=== PATIENT | male | born 1945 | race Caucasian/White ===

== ENCOUNTER 2019-08-19 20:01 | Emergency (ER) | payer MEDICARE ==
--- NOTE | 2019-08-19 20:27 | ED ---
Throat Pain/Nasal Congestion - HPI Summary HPI Summary: This patient is a 74 year old male presenting to [facility] with a chief complaint of problems s/p oral surgery. The patient had 2 screws from the mandible put in one month ago designed to close his jaw which came loose while he was yawning while driving. He states he was unable to cut the wires connecting the screws and he says they were going to be taken out in three days regardless. He states he attempted to use wire cutters but it did not work. He came here to get the screws cut out. - History of Current Complaint Chief Complaint: EDGeneral Time Seen by Provider: 08/19/19 20:19 Hx Obtained From: Patient Onset/Duration: Lasting Minutes - Allergies/Home Medications Allergies/Adverse Reactions: Allergies Allergy/AdvReac Type Severity Reaction Status Date / Time sildenafil [From Viagra] Allergy HEART Verified 08/24/19 15:57 RACING procaine [From Novocain] AdvReac Intermediate Headache Verified 08/24/19 22:09 PMH/Surg Hx/FS Hx/Imm Hx Endocrine/Hematology History: Reports: Hx Diabetes - diet controlled Cardiovascular History: Reports: Hx Hypertension Denies: Hx Pacemaker/ICD History: Denies: Hx Dialysis, Hx Renal Disease Musculoskeletal History: Denies: Hx Scoliosis Sensory History: Reports: Hx Hearing Aid Neurological History: Denies: Hx Headaches, Other Neuro Impairments/Disorders Psychiatric History: Denies: Hx Panic Disorder - Surgical History Surgery Procedure, Year, and Place: JAW - - A MONTH AGO - WIRED/SCREWS SHUT DUE TO A FALL - FRACTURED Infectious Disease History: No Infectious Disease History: Denies: Traveled Outside the [place] in Last 30 Days - Family History Known Family History: Negative: Diabetes - Social History Alcohol Use: Occasionally Substance Use Type: Reports: None Smoking Status (MU): Never Smoked Tobacco Review of Systems Negative: Fever Positive: Other - Loose surgical screws All Other Systems Reviewed And Are Negative: Yes Physical Exam - Summary Physical Exam Summary: Appearance: Well-appearing, Well-nourished, lying in bed comfortably Skin: Warm, dry, no obvious rash Eyes: sclera anicteric, no conjunctival pallor ENT: mucous membranes moist, surgical screws in the mandible on either side with attached wire and screw from the upper jaw. Neck: Supple, nontender Respiratory: Clear to auscultation, no signs of respiratory distress Cardiovascular: Normal S1, S2. No murmurs. Normal distal pulses in tibial and radial bilaterally. Abdomen: Soft, nontender, normal active bowel sounds present Musculoskeletal: Normal, Strength/ROM Intact Neurological: A&Ox3, awake and alert, mentation is normal, speech is fluent and appropriate Psychiatric: affect is normal, does not appear anxious or depressed Triage Information Reviewed: Yes Vital Signs On Initial Exam: Initial Vitals Temp Pulse Resp BP Pulse Ox 98.3 F 74 16 174/100 97 08/19/19 20:10 08/19/19 20:10 08/19/19 20:10 08/19/19 20:10 08/19/19 20:10 Vital Signs Reviewed: Yes Procedures - Procedure Summary Procedure Summary: Wire Cutting: Wires were snipped with a surgical sales representative wire rope and the wires were then removed without incident. - Sedation Patient Received Moderate/Deep Sedation with Procedure: No Diagnostics - Vital Signs Vital Signs Temp Pulse Resp BP Pulse Ox 08/19/19 20:10 98.3 F 74 16 174/100 97 - Laboratory Lab Statement: Any lab studies that have been ordered have been reviewed, and results considered in the medical decision making process. - Radiology Soft Tissue Neck XR Radiology Interpretation Completed By: ED Physician Summary of Radiographic Findings: No metallic foreign body seen. ED Provider has reviewed this report. EENT Course/Dx - Course Course Of Treatment: This patient is a 74 year old male presenting to [facility] with a chief complaint of problems s/p oral surgery. The patient had 2 screws put in one month ago designed to close his jaw which came loose while he was yawning while driving. In the ED, wires were snipped with a surgical sales representative wire rope and the wires were then removed without incident. A plan for discharge was discussed with the patient and he was agreeable with this plan. - Diagnoses Provider Diagnoses: History of surgical procedure on mouth Discharge ED - Sign-Out/Discharge Documenting (check all that apply): Patient Departure - Discharge Patient Received Moderate/Deep Sedation with Procedure: No - Discharge Plan Condition: Improved Disposition: HOME Referrals: Caitlin Kowalski MD [Primary Care Provider] - Additional Instructions: Keep your followup appt on Thursday. We got the wires out tonight so at least they will not be in your way. - Billing Disposition and Condition Condition: IMPROVED Disposition: Home - Attestation Statements Document Initiated by Scribe: Yes Documenting Scribe: Ernst Hall Provider For Whom Chetna is Documenting (Include Credential): Rodríguez Carey MD Scribe Attestation: I, Ernst Hall, scribed for Rodríguez Carey MD on 08/25/19 at 1848. Scribe Documentation Reviewed: Yes Provider Attestation: The documentation as recorded by the dorotaeErnst accurately reflects the service I personally performed and the decisions made by me, Rodríguez Carey MD Status of Scribe Document: Viewed
[2019-08-19 21:07] VITALS: BP 170/104
--- OUTSIDE RECORDS SUMMARY | 2019-08-19 21:09 | XMS REPORT | Continuity of Care Document ---
:1945 External Reference #:[id number] Author Name Nikhil Atkins M.D. 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 Onset: Nonproliferative diabetic retinopathy Nikhil Atkins M.D. Onset: 07/09/2015 Nuclear senile cataract Nikhil Atkins M.D. Onset: 07/09/2015 Combined form of senile cataract Nikhil Atkins M.D. Onset: 07/17/2016 Type 2 diabetes mellitus with mild Nikhil Atkins M.D. Onset: 12/08/2017 nonproliferative diabetic retinopathy without macular edema, bilateral Social History Type Date Description Comments Sex Unknown ETOH Use Drinks 2 Alcoholic Beverages Per Day Tobacco Use Start: Unknown Patient has never smoked Recreational Drug Use Denies Drug Use Smoking Status Reviewed: 08/04/19 Patient has never smoked Allergies, Adverse Reactions, Alerts Active Allergies Reaction Severity Comments Date Novocain headache for 4 hrs. 07/09/2015 Medications Active Medications SIG Qnty Indications Ordering Provider Date Zolpidem Tartrate Unknown 10mg Tablets Co Q10 Unknown 60mg Capsules Vitamin B12 Unknown 1000mcg Tablets ER Lisinopril Unknown 10mg Tablets Lovaza Unknown 5mg Capsules Vitamin D3 Maximum 1 daily Unknown Strength 5000Unit Capsules Melatonin ER 1 tab po at hs Unknown Tablets ER Turmeric Unknown 500mg Capsules Milk Thistle Unknown 500mg Capsules Lovastatin Sirisha Meyersela 20mg Tablets RPA-C Immunizations Description No Information Available Vital Signs Description No Information Available Results Description No Information Available Procedures Description No Information Available Medical Devices Description No Information Available Encounters Description No Information Available Assessments Date Code Description Provider 08/04/2019 H25.813 Combined forms of age-related cataract, Nikhil Atkins M.D. bilateral 08/04/2019 E11.3293 Type 2 diabetes mellitus with mild Nikhil Atkins M.D. nonproliferative diabetic Plan of Treatment 08/04/2019 - Nikhil Atkins M.D.H25.813 Combined forms of age-related cataract , bilateralComments:Smoking can increase the risk of developing or worsening any eye related disease, as well as affect your overall health. If you are a smoker, we strongly recommend that you quit.If you are not a smoker, we strongly recommend that you do not start. You have been diagnosed with cataracts. If you are happy with your vision as it is now, then we will see you at your next scheduled appointment. If you feel like your vision is getting worse before your scheduled appointment, please call [facility] at .Follow up:6 Month Follow Up You can expect to have your eyes dilated at your next visit. If Dr. Atkins orders any additional testing, it may require extra time. We recommend that you bring sunglasses, as dilation drops often make you light sensitive until they wear off. We always recommend you bring someone to drive you home if you are uncomfortable driving with your eyes dilated. If you have any questions before your next visit, feel free to call our office at .E11.1714 Type 2 diabetes mellitus with mild nonproliferative diabeticComments:I can detect diabetic changes in your eyes. Proper control of your diabetes is important for the health of your eyes. It is important that you keep all of your follow up appointments. Dr. Atkins has sent a report to your primary care doctor, letting them know the current status of your retina. Functional Status Description No Information Available Mental Status Description No Information Available Referrals Description No Information Available
--- OUTSIDE RECORDS SUMMARY | 2019-08-19 21:09 | XMS REPORT | Summary of Care ---
:1945 Author Organization [facility] Address [address] [address] Care Team Providers Name Role Phone None, Letona Primary Care Provider Unavailable Reason for Visit Reason Comments Fall Encounter Details Date Type Department Care Team Description 07/11/2019 - Emergency [facility] Emergency Department Sharifa Marino DO [address] [address] [phone] Emergency 07/12/2019 1 Brian Reveles MD [address] [address] [phone] [place] [id number] Allergies Active Allergy Reactions Severity Noted Date Comments Novocain Other High 07/11/2019 Severe Headache documented as of this encounter (statuses as of 07/13/2019) Medications Medication Sig Dispensed Refills Start Date End Date Status lisinopril (PRINIVIL, Take 10 mg by 0 Active ZESTRIL) 10 MG Oral mouth DAILY. Tab LOVASTATIN PO Take by mouth. 0 Active diclofenac (VOLTAREN) Take 1 Tab by 20 Tab 0 07/12/2019 Active 75 MG Oral Tab EC mouth TWO TIMES DAILY NEEDED (as needed for pain). documented as of this encounter (statuses as of 07/13/2019) Active Problems Not on filedocumented as of this encounter (statuses as of 07/13/2019) Immunizations Name Administration Dates Next Due TETANUS & DIPHTHERIA TOXOID (OVER 7 YRS) 07/12/2019 documented as of this encounter Social History Tobacco Use Types Packs/Day Years Used Date Never Assessed Sex Assigned at Date Recorded Not on file Job Start Date Occupation Industry Not on file Not on file Not on file Travel History Travel Start Travel End No recent travel history available. documented as of this encounter Last Filed Vital Signs Vital Sign Reading Time Taken Comments Blood Pressure 151/78 07/12/2019 4:45 AM EDT Pulse 79 07/12/2019 4:45 AM EDT Temperature - - Respiratory Rate 17 07/12/2019 4:45 AM EDT Oxygen Saturation 94% 07/12/2019 4:45 AM EDT Inhaled Oxygen Concentration - - Weight - - Height - - Body Mass Index - - documented in this encounter Discharge Instructions Brad Avila MD - 07/12/2019Follow up with [facility] in [facility] [phone] Call this morning for an appt. esvin AttachmentsThe following attachments cannot be sent through Care Everywhere.Jaw Fracture Discharge Instructions ([place])Preventing Falls ([place])HEAD INJURY ( AFTERCARE(R) INSTRUCTIONS(ER/ED)) ([place])documented in this encounter Plan of Treatment Name Type Priority Associated Diagnoses Date/Time Lac Repair Procedures Routine 07/12/2019 2:04 AM EDT Health Maintenance Due Date Last Done Comments DEPRESSION SCREENING 1959 HIV SCREENING 1962 HEPATITIS C SCREENING 1987 COLONOSCOPY SCREENING 1997 ZOSTER IMMUNIZATION SERIES (1 of 2) 1997 FALL RISK ASSESSMENT 2012 PNEUMOCOCCAL 65+YRS (1 of 2 - 2012 PCV13) INFLUENZA VACCINE (#1) 2019 HPV IMMUNIZATION SERIES Aged Out No longer eligible based on patient's age to complete this topic MENINGOCOCCAL VACCINE IMM Aged Out No longer eligible based on patient's age to complete this topic documented as of this encounter Procedures Procedure Name Priority Date/Time Associated Comments Diagnosis XR KNEE 3 VIEWS RIGHT STAT 07/12/2019 3:12 Results for this AM EDT procedure are in the results section. XR PELVIS 1 OR 2 VIEWS STAT 07/12/2019 3:11 Results for this (STANDARD) AM EDT procedure are in the results section. XR SHOULDER MIN 2 STAT 07/12/2019 3:10 Results for this VIEWS RIGHT (STANDARD) AM EDT procedure are in the results section. XR CHEST 2 VIEW PA AND STAT 07/12/2019 3:10 Results for this LATERAL (STANDARD) AM EDT procedure are in the results section. URINE DRUG SCREEN STAT 07/12/2019 3:10 Results for this AM EDT procedure are in the results section. LACERATION REPAIR Routine 07/12/2019 2:[address] SPINE CERVICAL STAT 07/12/2019 1:34 Results for this AM EDT procedure are in the results section. CT FACE WITHOUT IV STAT 07/12/2019 1:31 Results for this CONTRAST AM EDT procedure are in the results section. CT HEAD WITHOUT IV STAT 07/12/2019 1:28 Results for this CONTRAST AM EDT procedure are in the results section. CBC WITH DIFFERENTIAL STAT 07/12/2019 12:55 Results for this AM EDT procedure are in the results section. TYPE AND SCREEN STAT 07/12/2019 12:55 Results for this AM EDT procedure are in the results section. COMPREHENSIVE STAT 07/12/2019 12:55 Results for this METABOLIC PANEL AM EDT procedure are in the results section. ALCOHOL LEVEL, MEDICAL STAT 07/12/2019 12:55 Results for this AM EDT procedure are in the results section. PROTHROMBIN TIME STAT 07/12/2019 12:55 Results for this AM EDT procedure are in the results section. documented in this encounter Results XR KNEE 3 VIEWS RIGHT (07/12/2019 3:12 AM EDT) Specimen Impressions Performed At 1. No fracture or dislocation. Signed by Carlos Figueroa on 07/12/2019 3:22 AM Narrative Performed At Procedure: XR KNEE 3 VIEWS RIGHT Date of service: 07/12/2019 2:42 AM History: 74 years, Male, "fall" Technique: 3 views of right knee Comparison: None. Findings: There is no fracture or dislocation. The medial and lateral compartments are well-maintained. 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 No joint effusion is identified. There are vascular calcifications. Procedure Note Interface, Rad Results - 07/12/2019 3:24 AM EDT Procedure: XR KNEE 3 VIEWS RIGHT Date of service: 07/12/2019 2:42 AM History: 74 years, Male, "fall" Technique: 3 views of right knee Comparison: None. Findings: There is no fracture or dislocation. The medial and lateral compartments are well-maintained. 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 No joint effusion is identified. There are vascular calcifications. IMPRESSION 1. No fracture or dislocation. Signed by Carlos Figueroa on 07/12/2019 3:22 AM XR PELVIS 1 OR 2 VIEWS (STANDARD) (07/12/2019 3:11 AM EDT) Specimen Impressions Performed At 1. No fracture or dislocation. Signed by Carlos Figueroa on 07/12/2019 3:24 AM Narrative Performed At Procedure: XR PELVIS 1 OR 2 VIEWS (STANDARD) Date of service: 07/12/2019 2:42 AM History: 74 years, Male, "fall" Technique: 1 AP view of pelvis Comparison: None. Findings: There is no fracture or dislocation. The sacroiliac joints, hip joints and pelvic symphysis are preserved. There are vascular calcifications. Procedure Note Interface, Rad Results - 07/12/2019 3:26 AM EDT Procedure: XR PELVIS 1 OR 2 VIEWS (STANDARD) Date of service: 07/12/2019 2:42 AM History: 74 years, Male, "fall" Technique: 1 AP view of pelvis Comparison: None. Findings: There is no fracture or dislocation. The sacroiliac joints, hip joints and pelvic symphysis are preserved. There are vascular calcifications. IMPRESSION 1. No fracture or dislocation. Signed by Carlos Figueroa on 07/12/2019 3:24 AM XR SHOULDER MIN 2 VIEWS RIGHT (STANDARD) (07/12/2019 3:10 AM EDT) Specimen Impressions Performed At 1. No fracture or dislocation. Signed by Carlos Figueroa on 07/12/2019 3:14 AM Narrative Performed At Procedure: XR SHOULDER MIN 2 VIEWS RIGHT (STANDARD) Date of service: 07/12/2019 2:42 AM History: 74 years, Male, "fall" Technique: 3 views of right shoulder Comparison: None. Findings: There is no fracture or dislocation. 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 Soft tissues are intact. Procedure Note Interface, Rad Results - 07/12/2019 3:17 AM EDT Procedure: XR SHOULDER MIN 2 VIEWS RIGHT (STANDARD) Date of service: 07/12/2019 2:42 AM History: 74 years, Male, "fall" Technique: 3 views of right shoulder Comparison: None. Findings: There is no fracture or dislocation. 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 Soft tissues are intact. IMPRESSION 1. No fracture or dislocation. Signed by Carlos Figueroa on 07/12/2019 3:14 AM XR CHEST 2 VIEW PA AND LATERAL (STANDARD) (07/12/2019 3:10 AM EDT) Specimen Impressions Performed At 1. No active disease in the chest. Signed by Carlos Figueroa on 07/12/2019 3:16 AM Narrative Performed At Procedure: XR CHEST 2 VIEW PA AND LATERAL (STANDARD) Date of service: 07/12/2019 2:37 AM History: 74 years, Male, "fall" Comparison: None Findings: The heart size is normal. The aorta is atherosclerotic. There is no consolidation, pleural effusion or pneumothorax. The bones are grossly intact. Procedure Note Interface, Rad Results - 07/12/2019 3:18 AM EDT Procedure: XR CHEST 2 VIEW PA AND LATERAL (STANDARD) Date of service: 07/12/2019 2:37 AM History: 74 years, Male, "fall" Comparison: None Findings: The heart size is normal. The aorta is atherosclerotic. There is no consolidation, pleural effusion or pneumothorax. The bones are grossly intact. IMPRESSION 1. No active disease in the chest. Signed by Carlos Figueroa on 07/12/2019 3:16 AM URINE DRUG SCREEN (07/12/2019 3:10 AM EDT) Amphetamines Negative Negative [facility] Barbiturates Negative Negative [facility] Benzodiazepine Negative Negative [facility] Cannabinoids Negative Negative [facility] Cocaine Negative Negative [facility] Methadone Negative Negative [facility] Opiates Negative Negative [facility] Oxycodone Negative Negative [facility] Phencyclidine Negative Negative [facility] Propoxyphene Negative Negative [facility] Specimen Urine Narrative Performed At Drug Name [facility] Cut-off Level Amphetamine (AMP/METH) 1000 ng/ml Barbiturates (XOCHILT) 200 ng/ml Benzodiazepines (MARIA) 200 ng/ml Cannabinoids (THC) 50 ng/ml Cocaine (CORRINA) 300 ng/ml Methadone (MTD) 300 ng/ml Opiates (OPI) 300 ng/ml Oxycodone (OXY) 100 ng/ml Phencyclidine (PCP) 25 ng/ml Propoxyphene (PPX) 300 ng/ml Test results from this drug screen are to be used for medical purposes only. If positive, the sample is presumed to contain detectable drug concentrations equal to or greater than the cut-off concentrations listed above. A positive result indicates the presence of the drug or drug metabolite and does not indicate the level of intoxication or urinary concentration. Confirmation is available upon request to [facility]. Request for confirmation must be made within 5 days of the drug screen result. Performing Organization Address City/State/Zipcode Phone Number [facility] [address] [place] [address] CT SPINE CERVICAL (07/12/2019 1:34 AM EDT) Specimen Impressions Performed At 1. No fracture or malalignment. Signed by Carlos Figueroa on 07/12/2019 1:45 AM Narrative Performed At Procedure: CT SPINE CERVICAL Date of service: 07/12/2019 1:18 AM History: 74 years, Male, "C-spine trauma, NEXUS/CCR negative, low risk" Technique: Axial CT images of the cervical spine were obtained without intravenous contrast. Sagittal and coronal reformats were performed. Comparison: None Findings: Vertebral body stature is maintained. No fracture is identified. There is no spondylolisthesis. The craniocervical junction and facet joints are normally aligned. There is moderate multilevel disc space narrowing and endplate spurring, consistent with degenerative disc disease. There is moderate multilevel uncovertebral and facet arthropathy. There are varying degrees of spinal canal and neural foraminal narrowing at the disc space levels. There is no prevertebral soft tissue swelling. The lung apices are clear. Procedure Note Interface, Rad Results - 07/12/2019 1:47 AM EDT Procedure: CT SPINE CERVICAL Date of service: 07/12/2019 1:18 AM History: 74 years, Male, "C-spine trauma, NEXUS/CCR negative, low risk" Technique: Axial CT images of the cervical spine were obtained without intravenous contrast. Sagittal and coronal reformats were performed. Comparison: None Findings: Vertebral body stature is maintained. No fracture is identified. There is no spondylolisthesis. The craniocervical junction and facet joints are normally aligned. There is moderate multilevel disc space narrowing and endplate spurring, consistent with degenerative disc disease. There is moderate multilevel uncovertebral and facet arthropathy. There are varying degrees of spinal canal and neural foraminal narrowing at the disc space levels. There is no prevertebral soft tissue swelling. The lung apices are clear. IMPRESSION 1. No fracture or malalignment. Signed by Carlos Figueroa on 07/12/2019 1:[address] FACE WITHOUT IV CONTRAST (07/12/2019 1:31 AM EDT) Specimen Impressions Performed At 1. Oblique fracture at the left mandibular neck. Anterior dislocation of the left mandibular head. Signed by Carlos Figueroa on 07/12/2019 1:52 AM Narrative Performed At Procedure: CT FACE WITHOUT IV CONTRAST Date of service: 07/12/2019 1:18 AM History: 74 years, Male, "Facial trauma, fx suspected" Technique: Axial CT images of the face without contrast. Sagittal and coronal reformats were performed. Comparison: None Findings: There is mild mucosal thickening in the maxillary sinuses. The rest of the paranasal sinuses are clear. The mastoid air cells are clear. The globes are intact. The extraocular muscles, optic nerves and retrobulbar fat are normal. There is an oblique fracture at the left mandibular neck. There is anterior dislocation of the left mandibular head. There is soft tissue swelling over the left temporomandibular joint. Procedure Note Interface, Rad Results - 07/12/2019 1:54 AM EDT Procedure: CT FACE WITHOUT IV CONTRAST Date of service: 07/12/2019 1:18 AM History: 74 years, Male, "Facial trauma, fx suspected" Technique: Axial CT images of the face without contrast. Sagittal and coronal reformats were performed. Comparison: None Findings: There is mild mucosal thickening in the maxillary sinuses. The rest of the paranasal sinuses are clear. The mastoid air cells are clear. The globes are intact. The extraocular muscles, optic nerves and retrobulbar fat are normal. There is an oblique fracture at the left mandibular neck. There is anterior dislocation of the left mandibular head. There is soft tissue swelling over the left temporomandibular joint. IMPRESSION 1. Oblique fracture at the left mandibular neck. Anterior dislocation of the left mandibular head. Signed by Carlos Figueroa on 07/12/2019 1:[address] HEAD WITHOUT IV CONTRAST (07/12/2019 1:28 AM EDT) Specimen Impressions Performed At 1. No intracranial hemorrhage or depressed skull fracture. Signed by Carlos Figueroa on 07/12/2019 1:41 AM Narrative Performed At Procedure: CT HEAD WITHOUT IV CONTRAST Date of service: 07/12/2019 1:17 AM History: 74 years, Male, "Head trauma, minor, GCS>=13, NOC/NEXUS/CCR neg, first study" Technique: Axial head CT without contrast, with sagittal and coronal reformatted images. Comparison: None Findings: The ventricles, sulci and cisterns are age-appropriate. The brain parenchyma is normal. The wolfe-white matter differentiation is preserved without evidence of acute territorial infarction. There is no intracranial hemorrhage, extra-axial fluid collection, mass effect or midline shift. There is mild mucosal thickening in the maxillary sinuses. The mastoid air cells are clear. The visualized orbits are normal. There is no depressed skull fracture. There are atherosclerotic calcifications in the cavernous segments of the internal carotid arteries. Procedure Note Interface, Rad Results - 07/12/2019 1:43 AM EDT Procedure: CT HEAD WITHOUT IV CONTRAST Date of service: 07/12/2019 1:17 AM History: 74 years, Male, "Head trauma, minor, GCS>=13, NOC/NEXUS/CCR neg, first study" Technique: Axial head CT without contrast, with sagittal and coronal reformatted images. Comparison: None Findings: The ventricles, sulci and cisterns are age-appropriate. The brain parenchyma is normal. The wolfe-white matter differentiation is preserved without evidence of acute territorial infarction. There is no intracranial hemorrhage, extra-axial fluid collection, mass effect or midline shift. There is mild mucosal thickening in the maxillary sinuses. The mastoid air cells are clear. The visualized orbits are normal. There is no depressed skull fracture. There are atherosclerotic calcifications in the cavernous segments of the internal carotid arteries. IMPRESSION 1. No intracranial hemorrhage or depressed skull fracture. Signed by Carlos Figueroa on 07/12/2019 1:41 AM PROTHROMBIN TIME (07/12/2019 12:55 AM EDT) INR 1.06 0.79 - 1.15 [facility] Comment: [facility] INR Therapeutic Range: 2.0 - 3.5 Protime 13.5 11.4 - 14.3 sec [facility] Specimen Blood Performing Organization Address City/State/Zipcode Phone Number [facility] [address] [place] [address] [phone] TYPE AND SCREEN (07/12/2019 12:55 AM EDT) ABO/RH Type O NEG [facility] Antibody Screen Interp NEG [facility] Specimen Blood Performing Organization Address City/State/Zipcode Phone Number [facility] [address] [place] [address] COMPREHENSIVE METABOLIC PANEL (07/12/2019 12:55 AM EDT) Sodium 139 134 - 145 mmol/L [facility] Potassium 3.8 3.5 - 5.1 mmol/L [facility] Chloride 101 98 - 107 mmol/L [facility] CO2 22 22 - 30 mmol/L [facility] Calcium 8.9 8.3 - 10.1 mg/dl [facility] Albumin 4.3 3.5 - 5.0 g/dl [facility] BUN 14 9 - 20 mg/dl [facility] Creatinine 0.9 0.8 - 1.5 mg/dl [facility] Glucose 296 (H) 70 - 99 mg/dl [facility] Total Protein 7.5 6.3 - 8.2 g/dl [facility] Total Bilirubin 0.5 0.0 - 1.1 MG/DL [facility] AST 23 17 - 59 U/L [facility] ALT 17 (L) 21 - 72 U/L [facility] Alkaline 63 40 - 150 U/L [facility] eGFR >60 See Interpretation [facility] Comment: Below ml/min/1.73ml [facility] Estimated GFR Interpretation: Above 60ml/min/1.73m2 = Normal Renal Function 30-59 ml/min/1.73m2 = Stage 3 Chronic Kidney Disease 15-29 ml/min/1.73m2 = Stage 4 Chronic Kidney Disease Less than 15 ml/min/1.73m2 = Stage 5 Chronic Kidney Disease The GFR value is calculated using the Modification of Diet in Renal Disease ( MDRD) Study Equation which can be found at: https://www.kidney.org/content/vafl-cjxmp-kjtxqppb BUN/Creatinine 16 6 - 22 RATIO [facility] Anion Gap 16 (H) 3 - 11 mmol/L [facility] A/G Ratio 1.3 0.8 - 2.0 ratio [facility] Specimen Blood Performing Organization Address City/State/Zipcode Phone Number [facility] [address] [facility] [place] [address] [phone] CBC WITH DIFFERENTIAL (07/12/2019 12:55 AM EDT) WBC Count 5.82 4.23 - 9.07 K/uL [facility] RBC Count 4.42 4.30 - 5.89 M/UL [facility] Hemoglobin 13.3 (L) 13.7 - 17.5 g/dL [facility] Hematocrit 37.5 (L) 40.1 - 51.0 % [facility] MCV 84.8 79.0 - 92.2 FL [facility] MCH 30.1 25.7 - 32.2 PG [facility] MCHC 35.5 32.3 - 36.5 g/dL [facility] Platelet Count 105 (L) 163 - 337 K/uL [facility] MPV 10.6 9.4 - 12.4 FL [facility] RDW 13.9 11.6 - 14.4 % [facility] Neutrophil % 76.5 (H) 34.0 - 67.9 % [facility] Lymphocyte % 15.6 (L) 21.8 - 53.1 % [facility] Monocyte % 5.2 (L) 5.3 - 12.2 % [facility] Eosinophil % 2.1 0.8 - 7.0 % [facility] Basophil % 0.3 0.2 - 1.2 % [facility] nRBC % 0.0 0.0 - 0.2 % [facility] Neutrophil # 4.45 1.78 - 5.38 K/UL [facility] Lymphocyte # 0.91 (L) 1.32 - 3.57 K/UL [facility] Monocyte # 0.30 0.30 - 0.82 K/UL [facility] Eosinophil # 0.12 0.04 - 0.54 K/UL [facility] Basophil # 0.02 0.01 - 0.08 K/UL [facility] Immature Gran % 0.3 0.0 - 0.4 % [facility] Immature Gran # 0.02 0.00 - 0.03 K/uL [facility] NRBC # 0.00 0.00 - 0.12 K/uL [facility] Specimen Blood Performing Organization Address [facility] Phone Number [facility] [address] [place] [address] ALCOHOL LEVEL, MEDICAL (07/12/2019 12:55 AM EDT) Blood Alcohol 120.50 (H) 0.00 - 10.00 MG/DL [facility] Alcohol % 0.12 None Detected % [facility] Specimen Blood Performing Organization Address [facility] Phone Number [facility] [address] [place] [address] documented in this encounter Visit Diagnoses Diagnosis Fall at home, initial encounter - Primary Minor head injury, initial encounter Fracture of alveolus of left mandible, initial encounter for closed fracture ( HCC) documented in this encounter Administered Medications Medication Order MAR Action Action Date Dose Rate Site bacitracin-polymyxin b Given 07/12/2019 3:12 AM EDT Other (POLYSPORIN) topical ointment Topical, NOW, 1 dose, Thu07/12/19 at 0040 ketorolac (TORADOL) injection 30 mg Given 07/12/2019 4:18 AM EDT 30 mg 30 mg, Intravenous Push, NOW, 1 dose, Thu07/12/19 at 0405 tetanus-diphtheria toxoids-Td Given 07/12/2019 3:10 AM 0.5 mL Arm - Upper Left (TENIVAC) injection (adult) 0.5 EDT mL 0.5 mL, Intramuscular, NOW, 1 dose, Thu07/11/19 at 2350 documented in this encounter Insurance Payer Benefit Plan / Subscriber ID Effective Dates Phone Address Type Group [employer] EXCELL xxxxxxxxxxxx 2016-Present [employer] MEDICARE BLUE PPO [phone]) documented as of this encounter
--- OUTSIDE RECORDS SUMMARY | 2019-08-19 21:09 | XMS REPORT | Continuity of Care Document ---
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 [phone] Problems Active Problems Provider Date Type 2 diabetes mellitus Pedro Coreas M.D.,FACP Onset: 03/01/2009 Right bundle branch block and left Pedro Coreas M.D.,FACP Onset: 2018 anterior fascicular block on electrocardiogram Benign essential hypertension Pedro Coreas M.D.,FACP Onset: 03/01/2009 Mixed hyperlipidemia Pedro Coreas M.D.,FACP Onset: 03/01/2009 Gout Pedro Coreas M.D.,FACP Onset: 03/21/2011 Impotence of organic origin Pedro Coreas M.D.,FACP Onset: 03/24/2013 Insomnia Pedro Coreas M.D.,FACP Onset: 04/20/2013 Congenital anomaly of the kidney Pedro Coreas M.D.,FACP Onset: 2014 Note: RIGHT Social History Type Date Description Comments Sex Unknown Tobacco Use Start: Unknown Never Smoked Cigarettes ETOH Use 10/12/2018 Denies alcohol use Recreational Drug Use Denies Drug Use Tobacco Use Start: Unknown Patient has never smoked Smoking Status Reviewed: 07/18/19 Patient has never smoked Allergies, Adverse Reactions, Alerts Active Allergies Reaction Severity Comments Date Viagra hypotension at higher dose 06/04/2016 Novacaine 07/18/2019 Inactive Allergies NKDA 03/01/2009 Medications Active Medications SIG Qnty Indications Ordering Date Provider Metformin HCL 1 tablets every 60tabs E11.9 Caitlin Kowalski MD 07/18/2019 500mg morning and 1 Tablets tablet by mouth at bedtime Zolpidem Tartrate 1/2-1 by mouth 30tabs F51.01 Caitlin Kowalski MD 05/30/2019 every night at 10mg Tablets bedtime as needed insomnia mdd 1 Metformin HCL ER take 1 tablet 60tabs E11.65 Zainab Franks MD 04/27/2019 daily. 750mg Tablets ER 24HR Lovastatin take 1 tablet at 90tabs Miguelina 02/16/2018 20mg bedtime Alessandra Castorena Tablets Sildenafil Citrate 1/2 tabs one hour 14tabs N52.9 Pedro Lewis 01/27/2018 prior to Alessandra Coreas,FACP 50mg Tablets intercourse Melatonin 1 by mouth every 90caps Pedro Lewis 04/03/2017 5mg night Alessandra Coreas,FACP Capsules Lisinopril 1 by mouth every 90tabs Pedro Lewis 10/03/2016 5mg day Alessandra Coreas,FACP Tablets Indomethacin take 1 capsule by 20caps M10.071 Pedro Lewis 10/03/2015 50mg mouth two times Alessandra Coreas,FACP Capsules daily for 2 days, then take 1 capsule by mouth every day as needed Lovaza take 1 capsule by 180caps E78.2 Caitlin Kowalski MD 09/16/2012 1gm Capsules mouth twice a day Aspirin 1 po qd Pedro Lewis 03/21/2011 81mg Alessandra Coreas,FACP Chewtabs Freestyle Lite Test Use as Directed 100units E11.65 Pedro Lewis 2008 Every Day Or as Alessandra Coreas,ANA Strip Directed Freestyle Lite Use as directed 100units E11.65 Pedro Lewis Lancets Alessandra Coreas,FACP Coq-10 1 by mouth every 30caps Pedro Lewis 200mg day Alessandra Coreas,FACP Capsules Vitamin B12 1 po qd Unknown Tablets D3 Maximum Strength Unknown 5000Unit Capsules Milk Thistle 2 by mouth every Unknown 200mg day Capsules Immunizations CPT Code Status Date Vaccine Lot # [id number] Given 10/06/2017 Pneumonia Vaccine [id number] Given 10/03/2015 Pneumococcal Conjugate Vaccine 13 Valent For [id number] Intramuscular Use 47583 Given 03/21/2011 Pneumonia Vaccine [id number] 76795 Given 11/23/2010 Tetanus And Diptheria (Td) For Adult Use Preservative Free [id number] Refused 12/19/2013 Flu Vaccine Split Virus Preservative Free For Indiv 3Yr Older 92222 Refused 09/16/2012 Influenza Virus 3Yrs & Over 48075 Refused 03/22/2012 Influenza Virus 3Yrs & Over 08745 Refused 09/25/2011 Influenza Virus 3Yrs & Over 85409 Refused 03/21/2011 Influenza Virus 3Yrs & Over Vital Signs Date Vital Result Comment 07/18/2019 2:38pm Height 69 inches 5'9" Weight 189.00 lb Heart Rate 98 /min BP Systolic 148 mmHg manual bp BP Diastolic 98 mmHg manual bp BP Systolic Sitting 143 mmHg machine bp in R arm BP Diastolic Sitting 101 mmHg machine bp in R arm Body Temperature 97.8 F O2 % BldC Oximetry 96 % BMI (Body Mass Index) 27.9 kg/m2 04/27/2019 9:20am Height 69 inches 5'9" Weight 198.00 lb Heart Rate 82 /min BP Systolic 143 mmHg BP Diastolic 82 mmHg O2 % BldC Oximetry 98 % BMI (Body Mass Index) 29.2 kg/m2 Results Test Date Facility Test Result H/L Range Note Laboratory test finding 04/27/2019 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 Hemoglobin A1c 7.7 High 5 -7 Procedures Date Code Description Status 01/10/2019 957272711 Diabetic Retinal Eye Exam Completed 07/09/2018 [id number] Diabetic Retinal Eye Exam Completed 12/08/2017 477326315 Diabetic Retinal Eye Exam Completed 08/06/2017 793358157 Diabetic Retinal Eye Exam Completed 07/17/2016 455836580 Diabetic Retinal Eye Exam Completed 07/09/2015 592540323 Diabetic Retinal Eye Exam Completed 10/16/2014 [id number] Diabetic Retinal Eye Exam Completed 01/09/2013 239953893 Diabetic Retinal Eye Exam Completed 12/30/2012 207704732 Diabetic Retinal Eye Exam Completed 04/17/2009 [id number] Colonoscopy Completed Medical Devices Description No Information Available Encounters Type Date Location Provider Dx Diagnosis Office Visit 04/27/2019 [facility] Genna Marker, E11.65 Type 2 diabetes 9:20a Medicine - [facility] RPA-C mellitus with hyperglycemia Assessments Date Code Description Provider 07/18/2019 S46.102A Unspecified injury of muscle, fascia and Caitlin Kowalski MD tendon of long head of biceps, left arm, initial encounter 07/18/2019 I10 Essential (primary) hypertension Caitlin Kowalski MD 07/18/2019 E11.9 Type 2 diabetes mellitus without Caitlin Kowalski MD complications 04/27/2019 E11.65 Type 2 diabetes mellitus with hyperglycemia Genna Marker , RPA-C Plan of Treatment Future Appointment(s):10/25/2019 9:00 am - Caitlin Kowalski MD at [facility] Internal Medicine - [facility]07/18/2019 - Caitlin Kowalski, MDS46.102A Unspecified injury of muscle, fascia and tendon of long head of biceps, left arm, initial encounterReferral:Cristin Lr MD, Surgery,[id number] Essential (primary) hypertensionComments:Try to take lisinopril in a crushed form for the next ttdcvZ45.9 Type 2 diabetes mellitus without complicationsNew Medication: Metformin HCL 500 mg - 1 tablets every morning and 1 tablet by mouth at bedtime Functional Status Description No Information Available Mental Status Description No Information Available Referrals Refer to Dr Reason for Referral Status Appt Date Cristin Lr MD Sent [address] [place] [id number] [phone]
--- OUTSIDE RECORDS SUMMARY | 2019-08-19 21:09 | XMS REPORT | Continuity of Care Document ---
:1945 External Reference #:[id number] Author Name Cristin Lr MD (transmitted by agent of provider Krissy Gruber) Address [address] 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 Problems Active Problems Provider Date Type 2 [...] Pedro Coreas M.D.,FACP Onset: 2014 Note: RIGHT Injury of shoulder region Cristin Lr MD Onset: 07/26/2019 Social History Type Date Description Comments Sex Unknown Tobacco Use Start: Unknown Never Smoked Cigarettes ETOH Use 10/12/2018 Denies alcohol use Recreational Drug Use Denies Drug Use Tobacco Use Start: Unknown Patient has never smoked Smoking Status Reviewed: 07/26/19 Patient has never smoked Exercise Type/Frequency Exercises regularly Allergies, Adverse Reactions, Alerts Active Allergies Reaction [...] Capsules Lisinopril 1 by mouth every 90tabs Caitlin Kowalski MD 10/03/2016 5mg day Tablets Indomethacin take 1 capsule by 20caps [...] Lewis 2008 Every Day Or as Alessandra Coreas,FACP Strip Directed Freestyle Lite Use as directed 100units E11.65 Pedro Lewis Lancets Alessandra Coreas,FACP Coq-10 1 by mouth every 30caps Pedro Lewis 200mg yannick Coreas M.D.,FACP Capsules Vitamin B12 1 po qd Unknown Tablets D3 Maximum Strength Unknown 5000Unit Capsules Milk Thistle 2 by mouth every Unknown 200mg day Capsules Immunizations CPT Code Status Date Vaccine Lot # [id number] Given 10/06/2017 Pneumonia Vaccine [id number] 26476 Given 10/03/2015 Pneumococcal Conjugate Vaccine 13 Valent For [id number] Intramuscular Use 11267 Given 03/21/2011 Pneumonia Vaccine [id number] 86185 Given 11/23/2010 Tetanus And Diptheria (Td) For Adult Use Preservative Free 14302 Refused 12/19/2013 Flu Vaccine Split Virus Preservative Free For Indiv 3Yr Older 05131 Refused 09/16/2012 Influenza Virus 3Yrs & Over 00772 Refused 03/22/2012 Influenza Virus 3Yrs & Over 70238 Refused 09/25/2011 Influenza Virus 3Yrs & Over 75610 Refused 03/21/2011 Influenza Virus 3Yrs & Over Vital Signs Date Vital Result Comment 07/26/2019 1:14pm Height 69 inches 5'9" Weight 189.00 lb BP Systolic 130 mmHg BP Diastolic 80 mmHg Respiratory Rate 20 /min Pain Level 0 BMI (Body Mass Index) 27.9 kg/m2 07/18/2019 2:38pm Height 69 inches 5'9" Weight 189.00 lb Heart Rate 98 /min BP Systolic 148 mmHg manual bp BP Diastolic 98 mmHg manual bp BP Systolic Sitting 143 mmHg machine bp in R arm BP Diastolic Sitting 101 mmHg machine bp in R arm Body Temperature 97.8 F O2 % BldC Oximetry 96 % BMI (Body Mass Index) 27.9 kg/m2 Results Test Date Facility Test Result H/L Range Note Laboratory test finding 04/27/2019 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 Hemoglobin A1c 7.7 High 5 -7 Procedures Date Code Description Status 01/10/2019 656748806 Diabetic Retinal Eye Exam Completed 07/09/2018 756994208 Diabetic Retinal Eye Exam Completed 12/08/2017 807918622 Diabetic Retinal Eye Exam Completed 08/06/2017 028021793 Diabetic Retinal Eye Exam Completed 07/17/2016 959602418 Diabetic Retinal Eye Exam Completed 07/09/2015 538805553 Diabetic Retinal Eye Exam Completed 10/16/2014 693816493 Diabetic Retinal Eye Exam Completed 01/09/2013 576067989 Diabetic Retinal Eye Exam Completed 12/30/2012 441979980 Diabetic Retinal Eye Exam Completed 04/17/2009 78404355 Colonoscopy Completed Medical Devices Description No Information Available Encounters Type Date Location Provider Dx Diagnosis Office Visit 07/26/2019 Orthopedic Cristin Lr MD S46.102A Unsp injury of 1:00p [facility] musc/fasc/tend long hd bicep, left arm, init Office Visit 07/18/2019 [facility] Internal Caitlin Kowalski MD S46.102A Unsp injury of 2:40p Medicine - [facility] musc/fasc/tend long hd bicep, left arm, init I10 Essential (primary) hypertension E11.9 Type 2 diabetes mellitus without complications E78.2 Mixed hyperlipidemia Office Visit 04/27/2019 9:20a [facility] Internal Genna E11.65 Type 2 diabetes Medicine - Marker, RPA-C mellitus with [facility] hyperglycemia Assessments Date Code Description Provider 07/26/2019 S46.102A Unspecified injury of muscle, fascia and Cristin Lr MD tendon of long head of biceps, left arm, initial encounter 07/18/2019 S46.102A Unspecified injury of muscle, fascia and Caitlin Kowalski MD tendon of long head of biceps, left arm, initial encounter 07/18/2019 I10 Essential (primary) hypertension Caitlin Kowalski MD 07/18/2019 E11.9 Type 2 diabetes mellitus without Caitlin Kowalski MD complications 07/18/2019 E78.2 Mixed hyperlipidemia Caitlin Kowalski MD 04/27/2019 E11.65 Type 2 diabetes mellitus with hyperglycemia Genna Marker , RPA-C Plan of Treatment Future Appointment(s):10/25/2019 9:00 am - Caitlin Kowalski MD at [facility] Internal Medicine - [facility]07/26/2019 - Cristin Lr MDS46.102A Unspecified injury of muscle, fascia and tendon of long head of biceps, left arm, initial encounterFollow up:Follow up: 10-14 days post op Functional Status Description No Information Available Mental Status Description No Information Available Referrals Refer to Reason for Referral Status Appt Date Cristin Lr MD Sent 07/26/[address] [place] [address] [place] [address] [phone]
--- OUTSIDE RECORDS SUMMARY | 2019-08-19 21:09 | XMS REPORT | Continuity of Care Document ---
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 Problems Active Problems Provider Date Type 2 [...] CPT Code Status Date Vaccine Lot # [id number] Given 10/06/2017 Pneumonia Vaccine [id number] 20822 Given 10/03/2015 Pneumococcal Conjugate Vaccine 13 Valent For [id number] Intramuscular Use 97329 Given 03/21/2011 Pneumonia Vaccine [id number] 19955 Given 11/23/2010 Tetanus And Diptheria (Td) For Adult Use Preservative Free 93685 Refused 12/19/2013 Flu Vaccine Split Virus Preservative Free For Indiv 3Yr Older 44130 Refused 09/16/2012 Influenza Virus 3Yrs & Over 07022 Refused 03/22/2012 Influenza Virus 3Yrs & Over 57738 Refused 09/25/2011 Influenza Virus 3Yrs & Over 97525 Refused 03/21/2011 Influenza Virus 3Yrs & Over [...] H/L Range Note Laboratory test finding 04/27/2019 Buzzle [facility] In House Hemoglobin A1c 7.7 High 5 -7 Procedures Date Code Description Status 01/10/2019 583084837 Diabetic Retinal Eye Exam Completed 07/09/2018 750952200 Diabetic Retinal Eye Exam Completed 12/08/2017 557793226 Diabetic Retinal Eye Exam Completed 08/06/2017 983539791 Diabetic Retinal Eye Exam Completed 07/17/2016 021164673 Diabetic Retinal Eye Exam Completed 07/09/2015 029727434 Diabetic Retinal Eye Exam Completed 10/16/2014 343710504 Diabetic Retinal Eye Exam Completed 01/09/2013 037795529 Diabetic Retinal Eye Exam Completed 12/30/2012 025974986 Diabetic Retinal Eye Exam Completed 04/17/2009 52923914 Colonoscopy Completed Medical Devices Description No Information Available Encounters Type Date Location Provider Dx Diagnosis Office Visit 07/26/2019 Orthopedic Cristin Lr MD S46.102A Unsp injury of 1:00p [facility] musc/fasc/tend long hd bicep, left arm, init Office Visit 07/18/2019 [facility] Internal Caitlin Kowalski MD S46.102A Unsp injury of 2:40p Medicine - [facility] musc/fasc/tend long hd bicep, left arm, init I10 Essential (primary) hypertension E11.9 Type 2 diabetes mellitus without complications E78.2 Mixed hyperlipidemia Office Visit 04/27/2019 9:20a [facility] Internal Genna E11.65 Type 2 diabetes Medicine [...] 9:00 am - Caitlin Kowalski MD at [facility] Internal Medicine - [facility]07/26/2019 - Cristin Lr MDS46.102A Unspecified injury of muscle, fascia and tendon of long head of biceps, left arm, initial encounterFollow up:Follow up: 10-14 days post op Functional Status Description No Information Available Mental Status Description No Information Available Referrals Refer to Reason for Referral Status Appt Date Cristin Lr MD Sent 07/26/[address] [place] [address] [place] [address] [phone]
== END 2019-08-19 21:06 | disposition home or self-care (01) ==
LOC: ED 20:01
DX: M27.69 Other endosseous dental implant failure (principal); E11.9 Type 2 diabetes mellitus without complications; I10 Essential (primary) hypertension; Z79.84 Long term (current) use of oral hypoglycemic drugs; Z79.899 Other long term (current) drug therapy; Z88.4 Allergy status to anesthetic agent; Z88.8 Allergy status to other drugs, medicaments and biological substances
CPT/HCPCS: 70360; 99282

== ENCOUNTER 2019-08-24 14:25 | Observation (INO) | payer MEDICARE ==
--- NOTE | 2019-08-23 21:49 | HP ---
PREOPERATIVE HISTORY AND PHYSICAL: DATE OF ADMISSION/SURGERY: 08/24/19 DATE OF OFFICE VISIT: 08/23/19 ATTENDING PROVDER: Dr. Lr * (DICTATED BY PETR TYLER) PROCEDURE: Left elbow distal biceps repair versus reconstruction. CHIEF COMPLAINT: Left elbow pain. HISTORY OF PRESENT ILLNESS: Maico is a 74-year-old male who presents to the clinic for left elbow distal biceps rupture after a fall on the stairs. He has failed conservative measures and therefore agreed to undergo a left elbow distal biceps repair versus reconstruction with Dr. Lr on 08/24/19. He also had a jaw injury and his jaw was wired shut. His jaw hardware was recently removed and he is cleared by his surgeon because he is healing well. PAST MEDICAL HISTORY: Hypertension, high cholesterol, gout, type 2 diabetes. PAST SURGICAL HISTORY: Recent jaw surgery. The patient denies prior complications with anesthesia. MEDICATIONS: 1. Metformin 500 mg 1 by mouth in the evening and 1 at bedtime. 2. Zolpidem 10 mg, 1/2 to 1 tablet every night at bedtime for insomnia. 3. Metformin 750 mg 1 daily. 4. Fluconazole 150 mg 1 tab once a week x4 doses. 5. Lovastatin 20 mg 1 at bedtime. 6. Sildenafil 50 mg 1/2 tablet 1 hour prior to intercourse. 7. Melatonin 5 mg 1 by mouth every night. 8. Lisinopril 5 mg 1 by mouth every day. 9. Indomethacin 50 mg 1 tab 2 times a day for 2 days, then 1 tab a day as needed. 10. Lovaza 1 g 1 cap by mouth twice a day. 11. Aspirin 81 mg 1 by mouth daily. 12. CoQ10 200 mg 1 by mouth every day. 13. Vitamin B12 1 by mouth every day. 14. Vitamin D3 5000 units. 15. Milk thistle 200 mg 2 by mouth every day. 16. Ibuprofen liquid as needed. ALLERGIES: VIAGRA and NOVOCAINE. FAMILY HISTORY: Denies family history of DVT or PE. SOCIAL HISTORY: He lives with his spouse. 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 He has never smoked. He denies alcohol consumption. He exercises regularly. REVIEW OF SYSTEMS: A 14-point review of systems was reviewed with the patient. Positive for current complaint, otherwise negative. Denies fever, chills, chest pain, shortness of breath, history of bleeding disorder, history of DVT or PE. PHYSICAL EXAMINATION GENERAL: A 74-year-old well-developed, well-nourished male, in no acute distress. VITAL SIGNS: Height 69, weight 188, pulse 64, blood pressure 126/64, temperature 98.2, BMI 27.8. HEENT: Normocephalic, atraumatic. PERRL. Throat clear. NECK: Supple. PULMONARY: Lungs are clear to auscultation bilaterally. No wheezing, rhonchi, or rales. CARDIO: Regular rate and rhythm. S1, S2. No murmurs, gallops, or rubs. No edema. ABDOMEN: Positive bowel sounds. Soft, nontender. NEURO: Alert and oriented x3. Cranial nerves grossly intact. MUSCULOSKELETAL: Left upper extremity: He has an obvious deformity of his biceps. Negative hook test. +4/5 strength to elbow flexion, +5/5 strength to elbow extension. Full pronation and supination. Full elbow flexion and extension. +5/5 word processor strength. +2 radial pulse. Sensation intact to light touch distally. DIAGNOSTIC STUDIES/LAB DATA: MRI of the left elbow was independently reviewed by Dr. Lr and revealed a complete tear of distal biceps tendon with 10 cm of retraction from the radial tuberosity. IMPRESSION: Left elbow distal biceps rupture. PLAN: The patient is scheduled to undergo a left elbow distal biceps repair versus reconstruction with Dr. Lr on 08/24/19. He will follow up 10 to 14 days postop for followup and suture removal, and liquid ibuprofen as well as liquid hydrocodone and acetaminophen will be used for postop pain management. PETR TYLER [id number]/[facility] #: [id number] J[facility] PETERS VA MEDICAL CENTERDianne
[~2019-08-24 14:25] MED LIST: Buffered Lidocaine 1% SYRIN* 1 ML/SYRINGE INTRADERM ONE; DiMENhydriNATE IV* 50 MG/ML VIAL IV PUSH ONE; Famotidine IV* 10 MG/ML 2 ML (20 mg) IV ONE; HYDROmorphone INJ1* 1 MG/ML SYRINGE IV PRN; Lactated Ringers 1000 ML Bag* 1,000 ML IV SCH; Naloxone* 0.4 MG/ML 1 ML VIAL IV PRN; Ondansetron ODT TAB* 4 MG PO ONE; PROCHLORPERAZINE INJ 5 MG/ML 2 ML VIAL IV PRN; fentaNYL* 50 MCG/ML 2 ML VIAL (100 MCG VIAL) IV PRN; oxyCODONE TAB* 5 MG TAB PO PRN
[2019-08-24] MEDS ORDERED: DiMENhydriNATE IV* 50 MG/ML VIAL ONE (15:36)
[2019-08-24] MEDS ORDERED: Ondansetron ODT TAB* 4 MG ONE (15:37)
[2019-08-24] MEDS ORDERED: Famotidine IV* 10 MG/ML 2 ML (20 mg) ONE (15:37)
[2019-08-24] MEDS ORDERED: ceFAZolin 2 GM in NS PREMIX(*) 2 GM/100 ML BAG IVPB ONE (15:37)
[2019-08-24] MEDS ORDERED: fentaNYL* 50 MCG/ML 2 ML VIAL (100 MCG VIAL) ONE (16:29)
[2019-08-24] MEDS ORDERED: Midazolam* 1 MG/ML 5 ML VIAL (5 MG) ONE (16:30)
[2019-08-24] MEDS ORDERED: KETAMINE HCL* 50 MG/ML 10 ML VIAL ONE (16:30)
[2019-08-24] MEDS ORDERED: hydrALAZINE IV* 20 MG/ML VIAL ONE (19:55)
[2019-08-24] MEDS ORDERED: Propofol* 500 MG/50 ML BTL ONE (19:56)
[2019-08-24] MEDS ORDERED: ROPIVACAINE 5 MG/ML 30 ML BTL (0.5%) ONE (19:57)
[2019-08-24] MEDS ORDERED: Lidocaine 2% PF * 5 ML VIAL ONE (19:57)
[2019-08-24] MEDS ORDERED: Ondansetron INJ* 2 MG/ML VIAL IV PRN (20:53)
[2019-08-24] MEDS ORDERED: diPHENhydraMINE IV* 50 MG/ML 1 ml VIAL (BENADRYL) IV PRN (20:53)
[2019-08-24] MEDS ORDERED: HYDROcodone/ACET. 7.5/325 LIQ* 15 ML UDC PO PRN (20:57)
[2019-08-24] MEDS ORDERED: Ibuprofen ADULT LIQ* 600 MG/30 ML UDC PO PRN (20:57)
[2019-08-24] MEDS ORDERED: Zolpidem TAB* 5 MG PO PRN (20:59)
[2019-08-24] MEDS: Lactated Ringers 1000 ML Bag* 1,000 ML IV SCH (22:35)
[2019-08-24] MEDS: metFORMIN* 500 MG TAB PO SCH (22:39)
[2019-08-25] MEDS ORDERED: Lisinopril TAB* 5 MG PO SCH (09:00)
[2019-08-25] MEDS: Lactated Ringers 1000 ML Bag* 1,000 ML IV SCH (09:19)
[2019-08-25] MEDS: metFORMIN* 500 MG TAB PO SCH (09:19)
[2019-08-25] MEDS ORDERED: fentaNYL* 50 MCG/ML 5 ML VIAL (250 MCG VIAL) ONE (09:38)
[2019-08-25] MEDS ORDERED: Rocuronium* 10 MG/ML VIAL ONE (09:48)
--- NOTE | 2019-08-25 09:50 | PN ---
Progress Note - Progress Note Date of Service: 08/25/19 SOAP: Subjective: []Pt seen at bedside POD 1 sp Left elbow distal biceps repair . Denies CP, SOB, dizziness or nausea. Pain is well controlled. Denies DP, SOB, dizziness, nausea Objective: []Gen: Appears well, NAD LUE: dressing CDI no strikethrough. Able to f/e at wrist and digits. Sensation intact to light touch distally, cap refill less than two seconds distally BL calves supple and nontender Assessment: []POD 1 sp Left elbow distal biceps repair w achilles allograft Plan: []NWB LUE Keep dressing CDI until fu visit is away so patient didnt have help at home last night, confirms he has help from friends and family today and comfortable to DC home Vital Signs Temp 99.9 F 08/25/19 08:14 Pulse 67 08/25/19 08:14 Resp 16 08/25/19 09:19 BP 148/63 08/25/19 08:14 Pulse Ox 100 08/25/19 08:14 Intake & Output 08/24/19 08/25/19 08/25/19 18:59 06:59 18:59 Intake Total 1200 1000 Output Total 550 Balance 650 1000 Weight 179 lb Intake: IV Fluids 1200 1000 LR 1200 1000 Oral 0 Output: Urine 550 Other: # Bowel Movements 0 Laboratory Last Values POC Glucose (mg/dL) 103 mg/dL (70-100) H 08/24/19 16:02
--- NOTE | 2019-08-25 09:53 | DS ---
Orthopedic Discharge Summary - Discharge Summary Date of Admission:08/24/19 Date of Discharge: 08/25/19 Date of Surgery: 08/24/19 Attending Orthopedic Provider: Dr Lr Pre-operative Diagnosis: Left biceps rupture Operative Procedure: Left elbow distal biceps repair w achilles allograft Disposition of Patient: home Condition of Patient: stable History: VON WALLER is a 74 year old M with left biceps rupture requiring repair Hospital Course: VON was admitted to [facility] on 08/24/19. Patient underwent a Left elbow distal biceps repair w achilles allograft without complication followed by a brief recovery in PACU and transfer to the Short Stay Surgical Unit in stable condition. physical therapy and occupational therapy also participated in this patients care. Post-op day 1: patient was alert and in no acute distress. Dressing was clean, dry and intact. f/e at the wrist and all digits intact, sensation intact to light touch distally. Home Medications Medication Instructions Recorded Confirmed Type Cyanocobalamin (Vitamin B-12) 1,000 mcg PO QAM 06/21/14 08/24/19 History [Vitamin B-12] Adgsw-8-Wqax Ethyl Esters (NF) 1 cap PO BID 06/21/14 08/24/19 History [Lovaza (NF)] Tadalafil [Cialis] 10 mg PO DAILY PRN 06/21/14 08/24/19 History Cholecalciferol (Vitamin D3) 1,000 unit PO QAM 08/19/19 08/24/19 History [Vitamin D3] Lisinopril TAB* [Prinivil TAB 5 5 mg PO QAM 08/19/19 08/24/19 History MG*] Lovastatin 1 tab PO QPM 08/19/19 08/24/19 History Melatonin/Herbal Comb. No.184 1 cap PO BEDTIME 08/19/19 08/24/19 History [Melatonin + l-Theanine Softgel] Metformin HCl 1 tab PO BID 08/19/19 08/24/19 History Milk Thistle 500 mg PO QAM 08/19/19 08/24/19 History [place] 2 tab PO QAM 08/19/19 08/24/19 History Turmeric [Curcumin] 1 gm PO QAM 08/19/19 08/24/19 History Ubidecarenone [Coq-10] 100 mg PO QAM 08/19/19 08/24/19 History Vitamin E 400 unit PO QAM 08/19/19 08/24/19 History Zolpidem TAB* [Ambien*] 5 mg PO BEDTIME PRN 08/19/19 08/24/19 History HALEY ORTEGA Keep dressing CDI until follow up visit Requires liquid medications due to jaw injury, previously sent to and picked up from pharmacy FU Dr Lr 10- 14 days
[2019-08-25 12:14] VITALS: BP 142/61
--- NOTE | 2019-08-26 10:53 | OP ---
DATE OF OPERATION: 08/24/19 - ROOM #338 DATE OF : 49 SURGEON: Cristin Lr MD BILINGUAL SOCIAL WORKER: PETR Jimenez. An assistant womens volleyball coach was needed for the entirety of the case to help with positioning, retraction, and was utilized throughout all portion of the case. ANESTHESIOLOGIST: Dr. Hendrix. ANESTHESIA: Interscalene block with local MAC. PRE-OP DIAGNOSIS: Left distal biceps rupture, chronic. POST-OP DIAGNOSIS: Left distal biceps rupture, chronic. OPERATIVE PROCEDURE: Left distal biceps reconstruction with allograft, Achilles. COMPLICATIONS: None. ESTIMATED BLOOD LOSS: Minimal. TOURNIQUET TIME: 103 minutes. INDICATIONS: Maico Bliss is a 74-year-old male with a complicated history of a fall down a flight of stairs on 07/12/19 where he broke his jaw and required significant surgery and his jaw was wire shut after treatment of the fracture. He then, while he was in the hospital, noticed a deformity of the biceps and then saw me in the office on 07/26/19, which is already almost 2 weeks from his injury. He had no previous injury, he had lot of bruising and an obvious reverse reverse Samuel's deformity. Initially, we talked about treating this urgently. I offered him transfer to [facility] as well and he elected to stay here. I told him that a delayed procedure could result in the need of an allograft reconstruction as opposed to direct repair and his oral surgeon was also concerned about putting him under anesthesia because the risk of aspiration and even surgery would be risky in [place] as well. So, the patient waited until his hardware was removed and elected for surgery as soon as it was done. After extensive discussion of the risks and benefits of operative versus nonoperative treatment, he has elected to proceed with surgical treatment. Risks included, but are not limited to bleeding; infection ; damage to nerves, vessels, surrounding structures; wound nonhealing; persistent pain; need for surgery; scarring; stiffness; incomplete relief of symptoms; risks of anesthesia. IMPLANTS: One Arthrex biceps button. DESCRIPTION OF PROCEDURE: The patient was greeted in the preoperative area by the attending surgeon. Correct extremity was marked and consent was confirmed. The patient underwent interscalene nerve block by the anesthesiologist after which he was brought back to the operating suite, where he was placed in the supine position on the operating table. He then underwent local MAC, after which the left arm was prepped and draped in the usual sterile fashion beginning with chlorhexidine soap, scrub, and alcohol wipe and a final prep with ChloraPrep. An unsterile tourniquet was placed high in the proximal arm and after appropriate surgical pause indicating side, site, procedure, administration of antibiotics, the limb was exsanguinated and tourniquet inflated to 250 mmHg. A volar approach to the forearm was made over the radial head and more proximally over the palpated bicep tendon in a lazy H configuration with an attempt to not cross the antecubital fossa. Dissection was taken distally between the brachioradialis and pronator teres, care was taken to identify and protect the lateral antebrachial cutaneous nerve. Care was taken to avoid the leash of vessels but some required ligation with sutures. The proximal radius was identified and the biceps tubercle was exposed with the forearm supinated. Care was taken to not place any deep retractors medially to prevent synostosis. The tubercle was then prepared by rasping and was marked for later button placement. Proximally the dissection was taken down to expose the wad of scar in which the biceps was present. it was encapsulated but also had a large bulbous quality. The tendon was exposed and found to be shortened quite significantly. A whip stitch was passed through the distal end of the biceps and the diseased tissue was removed. This shortened the tendon even more significantly. Any adhesions were removed proximally. The neurovascular bundles were identified and protected. Unfortunately, the tendon was quite short and could only barely be approximated at around 120 degrees of elbow flexion. Therefore the decision was made to augment with allograft. The tourniquet was also taken down for a few minutes to make sure there was better excursion of the tendon. The allograft was thawed out on the back table. Once it was thawed, the bony block was removed and the tendon was then whip stitched. The strands were then passed through the Arthrex button. The radial tuberosity was exposed again and the guide wire was placed with the arm in supination, then overdrilled with a size 8 mm reamer unicortically. This was confirmed via xray. Any excess bone or debris was removed and the button was then deployed. Once placement was confirmed on the xrays, the allograft was sunk down and then the sutures were passed through the tendon and tied down. This was checked to be well fixed. The allograft was then passed proximally with care to then be visualized through the other more proximal incision. The grafts was then overlayed and sandwiched around the three affiliated tendon. With the elbow in 30 degrees, the biceps tendon and allograft were then whip stitched and sewn together using #2 fiberwire, and proximally to muscle with 0 vicryl. Once this was secured the elbow was taken through range of motion and there was no evidence of tearing or straining at the tenodesis site nor the bone-tendon interface. The wounds were then copiously irrigated and the wounds closed in layers. The skin was closed with jones. Sterile dressings were applied and the tourniquet was released. A well padded posterior splint was applied at 90 degrees. His extremity was pink and well perfused at the end of the case. He was awoken from anesthesia and transferred to the PACU in stable condition. POSTOPERATIVE PLAN: He will be nonweight bearing, kept at 90 degrees for 4 weeks. He will be discharged on pain medication. DVT prophylaxis was considered but deferred due to no previous personal or family history. I will see the patient back in 10-14 days. [id number]/[facility] #: [id number] TAMERA
== END 2019-08-25 16:23 | disposition home or self-care (01) ==
LOC: OR 14:25 → SSU 20:53
PROVIDERS: ADMIT Physician Assistant; ATTEND Orthopaedic Surgery
DX: S46.102A Unspecified injury of muscle, fascia and tendon of long head of biceps, left arm, initial encounter (principal); E78.00 Pure hypercholesterolemia, unspecified; W10.9XXA Fall (on) (from) unspecified stairs and steps, initial encounter; Y92.9 Unspecified place or not applicable; Z79.82 Long term (current) use of aspirin; Z79.899 Other long term (current) drug therapy; I10 Essential (primary) hypertension; M10.9 Gout, unspecified; E11.9 Type 2 diabetes mellitus without complications; E78.5 Hyperlipidemia, unspecified; I45.2 Bifascicular block; G47.00 Insomnia, unspecified
CPT/HCPCS: 76000; A9270-GY; C1713; C1768; G0378; J0360; J0690; J1240; J2250; J2704; J2795; J3010